=== PATIENT | male | born 1980 | race American Indian/Alaskan Native ===

== ENCOUNTER 2018-06-28 01:51 | Emergency (ER) | payer SELFPAY ==
[2018-06-28 02:01] VITALS: BP 133/93
[2018-06-28] MEDS ORDERED: MOTRIN PO ONE (02:54)
--- NOTE | 2018-06-28 03:31 | XRay Report ---
FINAL REPORT PROCEDURE: XR SPINE LUMBOSACRAL 2-3V TECHNIQUE: Lumbar spine radiographs, including AP, lateral, and lumbosacral spot views. CPT 51520 HISTORY: back pain COMPARISON: No prior studies are available for comparison. FINDINGS: Alignment: Normal. Vertebral body heights/Disk spaces: Normal. Fracture(s): None. Facets: Normal. Bone mineralization: Normal. IMPRESSION: Normal Examination.
--- NOTE | 2018-06-28 03:31 | XRay Report ---
FINAL REPORT PROCEDURE: XR SHOULDER 2+V RT TECHNIQUE: Right shoulder radiographs including AP views in internal and external rotation and abduction. CPT 38074 HISTORY: right shoulder pain COMPARISON: No prior studies are available for comparison. FINDINGS: Fracture (s) and/or Dislocation(s): None . Joint space(s): Normal . Soft tissues: Normal . Bone mineralization: Normal . Foreign bodies: None . IMPRESSION: Normal Examination
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
== END 2018-06-28 05:12 | disposition home or self-care (01) ==
LOC: ED 01:51
DX: M25.511 Pain in right shoulder (principal); M54.5 Low back pain; V49.49XA Driver injured in collision with other motor vehicles in traffic accident, initial encounter; Y93.89 Activity, other specified; Y92.89 Other specified places as the place of occurrence of the external cause; Y99.8 Other external cause status
CPT/HCPCS: 72100; 99283